=== PATIENT | female | born 1995 | race African-American/Black ===

== ENCOUNTER 2019-11-10 14:22 | Emergency (ER) | payer OTHER ==
[~2019-11-10] VITALS: Ht 162.6 cm; Wt 47.6 kg
[2019-11-10] MEDS ORDERED: FOLIC ACID0.8 M1 PO (14:32)
== END 2019-11-10 21:10 | disposition home or self-care (01) ==
LOC: ER 14:22
DX: O21.0 Mild hyperemesis gravidarum (principal); Z34.01 Encounter for supervision of normal first pregnancy, first trimester

== ENCOUNTER 2020-05-01 00:32 | Inpatient (IN) | payer OTHER ==
[~2020-05-01] VITALS: Ht 162.6 cm; Wt 58.1 kg
[~2020-05-01 00:32] MED LIST: FOLIC ACID0.8 M1 PO
[2020-05-01] MEDS ORDERED: PRENATAL 19 TA1 EACH PO (00:47)
== END 2020-05-02 15:27 | disposition home or self-care (01) | DRG 833 ==
LOC: OBS/DEL 00:32 → LDR 14:27
PROVIDERS: ADMIT Obstetrics & Gynecology Obstetrics; ATTEND Obstetrics & Gynecology Obstetrics
PROC: BY4FZZZ Ultrasonography of Third Trimester, Single Fetus (ICD-10-PCS; principal; 2020-05-01)
PROC: 4A1HXCZ Monitoring of Products of Conception, Cardiac Rate, External Approach (ICD-10-PCS; 2020-05-01)
DX: O60.03 Preterm labor without delivery, third trimester (principal); Z3A.32 32 weeks gestation of pregnancy

== ENCOUNTER 2020-05-19 01:13 | Inpatient (IN) | payer OTHER ==
[~2020-05-19] VITALS: Ht 162.6 cm; Wt 59.0 kg
[~2020-05-19 01:13] MED LIST changes: +PRENATAL 19 TA1 EACH PO
== END 2020-05-20 11:29 | disposition home or self-care (01) | DRG 833 ==
LOC: OBS/DEL 01:13 → LDR 15:27 → OBS/DEL 15:27 → LDR 05-20 11:29
PROVIDERS: ADMIT Obstetrics & Gynecology Obstetrics; ATTEND Obstetrics & Gynecology Obstetrics
PROC: 4A1HXCZ Monitoring of Products of Conception, Cardiac Rate, External Approach (ICD-10-PCS; principal; 2020-05-19)
DX: O23.33 Infections of other parts of urinary tract in pregnancy, third trimester (principal); Z3A.34 34 weeks gestation of pregnancy

== ENCOUNTER 2020-06-20 09:11 | Inpatient (IN) | payer OTHER ==
[~2020-06-20] VITALS: Ht 162.6 cm; Wt 3.2 kg
== END 2020-06-23 14:01 | DRG 788 ==
LOC: LDR 09:11 → OB/GYN 09:11 → O/R 17:57 → OB/GYN 18:53
PROVIDERS: ADMIT Obstetrics & Gynecology Obstetrics; ATTEND Obstetrics & Gynecology Obstetrics
PROC: 4A0HXFZ Measurement of Products of Conception, Cardiac Rhythm, External Approach (ICD-10-PCS; 2020-06-20)
PROC: 10D00Z1 Extraction of Products of Conception, Low, Open Approach (ICD-10-PCS; principal; 2020-06-20 15:00)
DX: O82 Encounter for cesarean delivery without indication (principal); O62.0 Primary inadequate contractions; Z3A.39 39 weeks gestation of pregnancy; Z37.0 Single live birth

== ENCOUNTER 2020-09-19 21:45 | Emergency (ER) | payer OTHER ==
[~2020-09-19] VITALS: Ht 162.6 cm; Wt 49.9 kg
== END 2020-09-19 23:20 | disposition home or self-care (01) ==
LOC: ER 21:45
DX: H00.12 Chalazion right lower eyelid (principal)

== ENCOUNTER 2020-11-13 14:07 | Emergency (ER) | payer OTHER ==
[~2020-11-13] VITALS: Ht 162.6 cm; Wt 48.1 kg
[2020-11-13] MEDS ORDERED: KETO10TA2 PO (17:50)
[2020-11-13] MEDS ORDERED: INTESTINEX680 M1 PO (17:50)
[2020-11-13] MEDS ORDERED: FLAGYL500MG PO (17:50)
[2020-11-13] MEDS ORDERED: CIPRO500 MG PO (17:50)
[2020-11-20] MEDS ORDERED: ACETAMINOPHEN325 M1 (15:46)
== END 2020-11-13 18:38 | disposition home or self-care (01) ==
LOC: ER 14:07
DX: L02.411 Cutaneous abscess of right axilla (principal)

== ENCOUNTER 2021-10-10 21:43 | Emergency (ER) | payer OTHER ==
[~2021-10-10] VITALS: Ht 162.6 cm; Wt 48.5 kg
[~2021-10-10 21:43] MED LIST changes: +ACETAMINOPHEN325 M1; +CIPRO500 MG PO; +FLAGYL500MG PO; +INTESTINEX680 M1 PO; +KETO10TA2 PO
== END 2021-10-10 23:37 | disposition home or self-care (01) ==
LOC: ER 21:43 → EMR PED 21:45 → ER 23:37
DX: B34.9 Viral infection, unspecified (principal); Z03.818 Encounter for observation for suspected exposure to other biological agents ruled out

== ENCOUNTER 2021-10-14 12:42 | Emergency (ER) | payer OTHER ==
[~2021-10-14] VITALS: Ht 162.6 cm; Wt 48.5 kg
== END 2021-10-14 14:10 | disposition home or self-care (01) ==
LOC: ER 12:42
DX: N93.8 Other specified abnormal uterine and vaginal bleeding (principal)

== ENCOUNTER 2021-12-19 10:56 | Emergency (ER) | payer OTHER ==
[~2021-12-19] VITALS: Ht 162.6 cm; Wt 52.2 kg
== END 2021-12-19 16:03 | disposition home or self-care (01) ==
LOC: ER 10:56 → EMR PED 10:56 → ER 10:58
DX: K52.89 Other specified noninfective gastroenteritis and colitis (principal)